=== PATIENT | female | born 1950 | race Caucasian/White ===

== ENCOUNTER 2016-12-01 14:52 | Emergency (ER) | payer MEDICARE, OTHER ==
[~2016-12-01] VITALS: Ht 157.5 cm; Wt 77.0 kg
[~2016-12-01 14:52] MED LIST: HYDR-1530 PO; LORT5TAB PO; ONDA4TAB7 OR; Z.0.NO CURRENT MEDS
[2016-12-01 14:54] VITALS: BP 178/85; PULSE 99; RESP 21; TEMP 98.3; O2SAT 98
--- NOTE | 2016-12-01 15:14 | PD ---
HPI Chief Complaint: Fall Time Seen by Provider: 15:14 Travel History International Travel<30 days: No Contact w/Intl Traveler<30days: No Traveled to known affect area: No History of Present Illness HPI 66-year-old female presents to the emergency Department with complaint of left shoulder pain after missing a step and falling forward while walking up the steps. She denies hitting her head or loss of consciousness. Denies neck pain or back pain. Denies anticoagulants. Denies lightheadedness, dizziness, headache, nausea, vomiting. Denies chest pain, shortness of breath, abdominal pain. Denies paresthesias, loss of sensation to the affected extremity. Reports decreased range of motion Has not taken any medications or tried any treatments to alleviate her symptoms. Has no other medical complaints. No other modifying factors or associated signs and symptoms. PFSH Past Medical History Arthritis: No Asthma: Yes Autoimmune Disease: No Heart Rhythm Problems: No Cardiovascular Problems: No High Cholesterol: No Chest Pain: No Congestive Heart Failure: No COPD: Yes Cerebrovascular Accident: No Diminished Hearing: Yes (LEFT EAR) Diverticulitis: Yes Endocrine: No Gastrointestinal Disorders: Yes GERD: Yes Genitourinary: No Headaches: Yes Hepatitis: No Hiatal Hernia: No Hypertension: No Musculoskeletal: No Neurologic: No Respiratory: Yes (copd) Myocardial Infarction: No Seizures: No Ulcer: No ?: Not Menopausal: Yes Tubal Ligation: Yes (1977) Past Surgical History Abdominal Surgery: Yes (GALL BLADDER REMOVAL, TUBAL LIGATION) AICD: No Cardiac Surgery: No Cholecystectomy: Yes (1978) Ear Surgery: No Endocrine Surgery: No Eye Surgery: No Genitourinary Surgery: No Gynecologic Surgery: Yes (TUBAL LIGATION) Oral Surgery: No Pacemaker: No Thoracic Surgery: No Other Surgery: Yes (PLASTIC CHIN) Social History Alcohol Use: No Tobacco Use: Yes (2.5 PPD X30 YEARS) Substance Use: No Allergies-Medications (Allergen,Severity, Reaction): Coded Allergies: Iodine (Verified Allergy, Severe, HIVES, SHOCK, 01/18/12) RASH Nonsteroidal Anti-Inflammatory Agts (Verified Allergy, Mild, STOMACH UPSET , 01/18/12) Penicillin (Verified Allergy, Mild, 01/18/12) Reported Meds & Prescriptions Reported Meds & Active Scripts Active Ondansetron Odt (Ondansetron HCl) 4 Mg Tab 4 Mg OR Q6HPRN Acetaminophen/Hydrocodone (Acetaminophen/Hydrocodone Bitart) 325 Mg/10 Mg Tab 325 Mg PO Q6HPRN Lortab 5/500 (Acetaminophen/Hydrocodone Bitart) 5 Mg/500 Mg Tab 1 Tab PO Q6HPRN Reported No Current Meds (Miscellaneous Medication) [facility] [place] Review of Systems Except as stated in HPI: all other systems reviewed are Neg Physical Exam Narrative GENERAL: Well-nourished, well-developed female patient, in no acute distress SKIN: Warm and dry. HEAD: Atraumatic. Normocephalic. No facial or scalp abrasions or lacerations noted. EYES: Pupils equal and round at 3 mm with brisk reaction. No scleral icterus. No injection or drainage. No raccoon eyes. ENT: Mucosa pink and moist. No erythema or exudates. No uvular edema. No uvular , palatal, or tonsillar deviation. Airway patent. Nares without nasal blood, purulent drainage. No rhinorrhea. EARS: Bilateral pinnae and external canals appear within normal limits. Bilateral tympanic membranes without erythema, dullness, hemotympanum or perforation. No otorrhea. No melton signs. NECK: Moving freely. Trachea midline. No lymphadenopathy. Active rotation of the neck greater than 45 left and right. No midline point tenderness on palpation of the cervical spine. No obvious deformities. CHEST: No retractions or use of accessory muscles. CARDIOVASCULAR: Regular rate and rhythm. No murmur appreciated. RESPIRATORY: No accessory muscle use. Clear to auscultation. Breath sounds equal bilaterally. GASTROINTESTINAL: Abdomen soft, non-tender, nondistended. Hepatic and splenic margins not palpable. Bowel sounds are active 4 quadrants. 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 Area of edema and mild ecchymosis noted to the left biceps area; areas with tenderness on palpation. Left upper extremity supple and nontender 2 + radial pulses and sensory intact. No obvious deformities. No clubbing. No cyanosis. No edema. BACK: No midline Point tenderness on palpation of the lumbar or thoracic spine. No obvious deformities. Patient sitting up in bed at 90. NEUROLOGICAL: Awake and alert. Oriented 3. No obvious cranial nerve deficits. Motor grossly within normal limits. Normal speech Moves all extremities. 5/5 strength to all extremities. Sensory intact. PSYCHIATRIC: Appropriate mood and affect; insight and judgment normal. Data Data Last Documented VS Vital Signs Date Time Temp Pulse Resp B/P Pulse Ox O2 Delivery O2 Flow Rate FiO2 12/01/16 15:16 16 98 Room Air 12/01/16 14:54 98.3 99 178/85 Orders Shoulder, Complete (>2vws) (12/01/16 15:14) Ice/Cold Pack (12/01/16 15:14) Humerus (Min 2vws) (12/01/16 15:16) Sling Cradle Arm (12/01/16 ) Sling Cradle Arm (12/01/16 ) MDM Medical Decision Making Medical Screen Exam Complete: Yes Emergency Medical Condition: Yes Medical Record Reviewed: Yes Differential Diagnosis Fall, Shoulder sprain, shoulder contusion, shoulder fracture, clavicle fracture , humerus fracture Narrative Course 66-year-old female with left shoulder pain after a mechanical fall today. Denies hitting her head or loss of consciousness. Denies nausea, vomiting. On physical exam the patient is without raccoon eyes, melton signs, rhinorrhea, or hemotympanum. I do not suspect open or depressed skull fracture, and the patient has no signs of basilar skull fracture. [place] CT Head Injury Rule suggests a head CT is not necessary for this patient and clears the patient for head injury without imaging. Denies neck pain. [place] C-Spine Rule suggests the C-Spine can be cleared clinically of fracture, and imaging is not required. There is no midline point tenderness on palpation of the cervical spine. The patient is able to actively rotate the neck 45 left and right. The patient is sitting up in bed at 90. The patient is ambulatory. I offered the patient medication for pain and she declined at this time. Icepack ordered. Left shoulder x-ray ordered. Left humerus x-ray ordered. 1630: Left shoulder and left humerus x-ray with no acute findings. Arm sling provided for support. Patient declined prescription for pain medications for home. Instructed patient to follow up outpatient with orthopedics if symptoms persist greater than 7-10 days. Patient verbalizes understanding and agreement with treatment plan. Patient is medically cleared and stable for discharge. Discussed reasons to return to the emergency department. Instructed patient to follow up with primary care provider. Patient agrees with treatment plan. The patients vital signs are stable and the patient is stable for outpatient follow- up and treatment. Patient discharged home, stable and in no acute distress. Diagnosis Primary Impression: Fall Qualified Code: W19.XXXA - Fall, initial encounter Additional Impressions: Shoulder injury Qualified Code: S49.92XA - Shoulder injury, left, initial encounter Contusion, arm, upper Qualified Code: S40.022A - Contusion of left upper arm, initial encounter Referrals: Primary Care Physician Patient Instructions: Contusion in Adults (ED), Fall Prevention (ED), General Instructions, Shoulder Sprain (ED) Additional Instructions: Tylenol or ibuprofen as needed and as directed to reduce pain and inflammation Rest, ice, and compress extremity to decrease pain and inflammation Arm sling for support; remove arm sling frequently to actively move the shoulder as tolerated Avoid aggravating activity; increase activity as tolerated Follow-up with primary care provider Follow-up with orthopedics as needed Return to the emergency department immediately with worsening symptoms Med/Other Pt SpecificInfo: No Meds Exist/No RX given Disposition: 01 DISCHARGE HOME Condition: Stable [place] Dec 01, 2016 15:14
--- NOTE | 2016-12-01 16:19 | RADRPT ---
EXAM DATE/TIME: 12/01/2016 15:30 [facility] COMPARISON: No previous studies available for comparison. INDICATIONS : Pain from fall. MEDICAL HISTORY : None. SURGICAL HISTORY : None. ENCOUNTER: Initial ACUITY: 1 day PAIN SCORE: 6/10 LOCATION: Left shoulder. FINDINGS: Multiple view examination of the left shoulder demonstrates no evidence of fracture or dislocation. The glenohumeral and acromioclavicular joints are maintained. There is normal range of motion betwee n internal and external rotation. Bony mineralization is normal. There is a small focus of sclerosis at the left humeral head likely related to a bone island. CONCLUSION: No acute disease. Steve Fowler MD on December 01, 2016 at 16:15 Board Certified Radiologist. This report was verified electronically.
--- NOTE | 2016-12-01 16:19 | RADRPT ---
EXAM DATE/TIME: 12/01/2016 15:36 [facility] COMPARISON: No previous studies available for comparison. INDICATIONS : Pain from fall. MEDICAL HISTORY : None. SURGICAL HISTORY : None. ENCOUNTER: Initial ACUITY: 1 day PAIN SCORE: 5/10 LOCATION: Left humerus. FINDINGS: Two view examination of the left humerus demonstrates no evidence of fracture or dislocation. Bony m ineralization is normal. The soft tissue structures are intact. CONCLUSION: No acute disease. Steve Fowler MD on December 01, 2016 at 16:16 Board Certified Radiologist. This report was verified electronically.
== END 2016-12-01 16:47 | disposition home or self-care (01) ==
LOC: NEPD 14:52
DX: S40.022A Contusion of left upper arm, initial encounter (principal); J45.909 Unspecified asthma, uncomplicated; J44.9 Chronic obstructive pulmonary disease, unspecified; K21.9 Gastro-esophageal reflux disease without esophagitis; Z79.899 Other long term (current) drug therapy; Z88.0 Allergy status to penicillin; Z88.6 Allergy status to analgesic agent; W10.9XXA Fall (on) (from) unspecified stairs and steps, initial encounter
CPT/HCPCS: 73030; 73060; 99283

== ENCOUNTER 2017-05-28 10:43 | Observation (INO) | payer MEDICARE, OTHER ==
[2017-05-28] VITALS (7 sets, daily range): BP systolic 130–137; BP diastolic 60–80; PULSE 72–85; RESP 16–20; TEMP 97.8–98.9; O2SAT 97–99
[2017-05-28 12:02] LABS: AUTOMATED NEUTROPHIL # 6.7 TH/MM3 (1.8-7.7); BASOPHIL # 0.1 TH/MM3 (0-0.2); BASOPHIL % 0.6 % (0.0-2.0); EOSINOPHIL # 0.1 TH/MM3 (0-0.4); EOSINOPHIL % 1.3 % (0.0-4.0); HEMATOCRIT 43.5 % (35.0-46.0); HEMO FLAGS DIFF FINAL; LYMPH % 25.2 % (9.0-44.0); LYMPHOCYTE # 2.5 TH/MM3 (1.0-4.8); MEAN CELL VOLUME 91.6 FL (80.0-100.0); MEAN CORPUSCULAR HEMOGLOBIN 30.8 PG (27.0-34.0); MEAN CORPUSCULAR HGB CONC 33.6 % (32.0-36.0); MONO % 6.2 % (0.0-8.0); NEUT % 66.7 % (16.0-70.0); PLATELET COUNT 242 TH/MM3 (150-450); RED BLOOD COUNT 4.75 MIL/MM3 (4.00-5.30); RED CELL DISTRIBUTION WIDTH 15.1 % (11.6-17.2)
[2017-05-28 12:11] LABS: APTT (PATIENT) 29.7 SEC (24.3-30.1); PROTHROMBIN TIME - PATIENT 9.8 SEC (9.8-11.6)
[2017-05-28 12:22] LABS: ANION GAP 11 MEQ/L (5-15); BICARBONATE 24.4 MEQ/L (21.0-32.0); BLOOD UREA NITROGEN 13 MG/DL (7-18); CHLORIDE 106 MEQ/L (98-107); GLOMERULAR FILTRATION RATE 88 ML/MIN (>89); SODIUM (NA) 141 MEQ/L (136-145)
--- NOTE | 2017-05-28 12:29 | RADRPT ---
EXAM DATE/TIME: 05/28/2017 11:53 [facility] COMPARISON: No previous studies available for comparison. INDICATIONS : Chest pain. MEDICAL HISTORY : Chronic obstructive pulmonary disease. SURGICAL HISTORY : None. ENCOUNTER: Initial ACUITY: 1 day PAIN SCORE: 10 LOCATION: Bilateral chest FINDINGS: A single view of the chest demonstrates the lungs to be symmetrically aerated without evidence of mas s, infiltrate or effusion. The cardiomediastinal contours are unremarkable. Osseous structures are intact. CONCLUSION: Normal examination. Andrew Saunders MD on May 28, 2017 at 12:26 Board Certified Radiologist. This report was verified electronically.
[2017-05-28] MEDS ORDERED: NITROGLYCERIN 0.4 MG SL 25 TABS/BTL SL PRN (12:45)
--- NOTE | 2017-05-28 12:55 | PD ---
HPI Chief Complaint: Chest Pain Time Seen by Provider: 11:01 Travel History International Travel<30 days: No Contact w/Intl Traveler<30days: No Traveled to known affect area: No History of Present Illness HPI 66yo F with no significant PMH presents to the ED with c/o midsternal chest pain about 20 min prior to arrival. Said it feels like a tightness, nonradiating. She was sweating. Denies any sob, cough, fever, n/v, abdominal pain, focal weakness or numbness. +Cigarette smoking. Denies any cardiac work up, recent stress test. PFSH Past Medical History Arthritis: No Asthma: Yes Autoimmune Disease: No Heart Rhythm Problems: No Cardiovascular Problems: No High Cholesterol: No Chest Pain: No Congestive Heart Failure: No COPD: Yes Cerebrovascular Accident: No Diminished Hearing: Yes (LEFT EAR) Diverticulitis: Yes Endocrine: No Gastrointestinal Disorders: Yes GERD: Yes Genitourinary: No Headaches: Yes Hepatitis: No Hiatal Hernia: No Hypertension: No Musculoskeletal: No Neurologic: No Reproductive: No Respiratory: Yes (copd) Myocardial Infarction: No Seizures: No Ulcer: No ?: Not Menopausal: Yes Tubal Ligation: Yes (1977) Past Surgical History Abdominal Surgery: Yes (GALL BLADDER REMOVAL, TUBAL LIGATION) AICD: No Cardiac Surgery: No Cholecystectomy: Yes (1978) Ear Surgery: No Endocrine Surgery: No Eye Surgery: No Genitourinary Surgery: No Gynecologic Surgery: Yes (TUBAL LIGATION) Neurologic Surgery: No Oral Surgery: No Pacemaker: No Thoracic Surgery: No Other Surgery: Yes (PLASTIC CHIN) Social History Alcohol Use: No Tobacco Use: Yes (2.5 PPD X30 YEARS) Substance Use: No Allergies-Medications (Allergen,Severity, Reaction): Coded Allergies: iodine (Verified Allergy, Severe, HIVES, SHOCK, 05/28/17) RASH potassium iodide (Verified Allergy, Severe, HIVES, SHOCK, 05/28/17) RASH povidone-iodine (Verified Allergy, Severe, HIVES, SHOCK, 05/28/17) RASH sodium iodide (Verified Allergy, Severe, HIVES, SHOCK, 05/28/17) RASH sodium iodide (Verified Allergy, Severe, HIVES, SHOCK, 05/28/17) RASH diclofenac (Verified Allergy, Mild, STOMACH UPSET, 05/28/17) etodolac (Verified Allergy, Mild, STOMACH UPSET, 05/28/17) flurbiprofen (Verified Allergy, Mild, STOMACH UPSET, 05/28/17) ibuprofen (Verified Allergy, Mild, STOMACH UPSET, 05/28/17) indomethacin (Verified Allergy, Mild, STOMACH UPSET, 05/28/17) ketoprofen (Verified Allergy, Mild, STOMACH UPSET, 05/28/17) ketorolac (Verified Allergy, Mild, STOMACH UPSET, 05/28/17) naproxen (Verified Allergy, Mild, STOMACH UPSET, 05/28/17) oxaprozin (Verified Allergy, Mild, STOMACH UPSET, 05/28/17) penicillin G (Verified Allergy, Mild, 05/28/17) Reported Meds & Prescriptions Reported Meds & Active Scripts Active Ondansetron Odt (Ondansetron HCl) 4 Mg Tab 4 Mg OR Q6HPRN Acetaminophen/Hydrocodone (Acetaminophen/Hydrocodone Bitart) 325 Mg/10 Mg Tab 325 Mg PO Q6HPRN Lortab 5/500 (Acetaminophen/Hydrocodone Bitart) 5 Mg/500 Mg Tab 1 Tab PO Q6HPRN Reported No Current Meds (Miscellaneous Medication) Misc Review of Systems Except as stated in HPI: all other systems reviewed are Neg Physical Exam Narrative GENERAL: 66yo F in mild distress. SKIN: Focused skin assessment warm/dry. HEAD: Atraumatic. Normocephalic. EYES: Pupils equal and round. No scleral icterus. No injection or drainage. CARDIOVASCULAR: Regular rate and rhythm. No murmur appreciated. RESPIRATORY: No accessory muscle use. Clear to auscultation. Breath sounds equal bilaterally. GASTROINTESTINAL: Abdomen soft, non-tender, nondistended. MUSCULOSKELETAL: No obvious deformities. No clubbing. No cyanosis. Trace lower ext edema. NEUROLOGICAL: Awake and alert. No obvious cranial nerve deficits. Motor grossly within normal limits. Normal speech. PSYCHIATRIC: Appropriate mood and affect; insight and judgment normal. Data Data Last Documented VS Vital Signs Date Time Temp Pulse Resp B/P (MAP) Pulse Ox O2 Delivery O2 Flow Rate FiO2 05/28/17 10:57 78 18 130/66 (87) 98 Room Air 05/28/17 10:52 98.9 Orders Orders Basic Metabolic Panel (Bmp) (05/28/17 11:13) Complete Blood Count With Diff (05/28/17 11:13) Prothrombin Time / Inr (Pt) (05/28/17 11:13) Act Partial Throm Time (Ptt) (05/28/17 11:13) Troponin I (05/28/17 11:13) Chest, Single Ap (05/28/17 11:13) Nitroglycerin Sl (Nitrostat Sl) (05/28/17 12:45) Labs Laboratory Tests Test 05/28/17 11:10 White Blood Count 10.0 TH/MM3 Red Blood Count 4.75 MIL/MM3 Hemoglobin 14.6 GM/DL Hematocrit 43.5 % Mean Corpuscular Volume 91.6 FL Mean Corpuscular Hemoglobin 30.8 PG Mean Corpuscular Hemoglobin Concent 33.6 % Red Cell Distribution Width 15.1 % Platelet Count 242 TH/MM3 Mean Platelet Volume 8.9 FL Neutrophils (%) (Auto) 66.7 % Lymphocytes (%) (Auto) 25.2 % Monocytes (%) (Auto) 6.2 % Eosinophils (%) (Auto) 1.3 % Basophils (%) (Auto) 0.6 % Neutrophils # (Auto) 6.7 TH/MM3 Lymphocytes # (Auto) 2.5 TH/MM3 Monocytes # (Auto) 0.6 TH/MM3 Eosinophils # (Auto) 0.1 TH/MM3 Basophils # (Auto) 0.1 TH/MM3 CBC Comment DIFF FINAL Differential Comment Prothrombin Time 9.8 SEC Prothromb Time International Ratio 1.0 RATIO Activated Partial Thromboplast Time 29.7 SEC Blood Urea Nitrogen 13 MG/DL Creatinine 0.67 MG/DL Random Glucose 94 MG/DL Calcium Level 8.8 MG/DL Sodium Level 141 MEQ/L Potassium Level 4.0 MEQ/L Chloride Level 106 MEQ/L Carbon Dioxide Level 24.4 MEQ/L Anion Gap 11 MEQ/L Estimat Glomerular Filtration Rate 88 ML/MIN Troponin I LESS THAN 0.02 NG/ML MDM Medical Decision Making Medical Screen Exam Complete: Yes Emergency Medical Condition: Yes Interpretation(s) EKG: NSR 62bpm. Normal axis. Differential Diagnosis ACS vs. GERD vs. musculoskeletal pain Narrative Course 66yo F with midsternal chest pain. She took aspirin prior to arrival. Pt given sublingual nitro which helped with the chest pain. Labs reviewed, no leukocytosis. Troponin negative. CXR negative. Pt has not had any cardiac work up so will admit to chest pain center for serial EKG and cardiac enzymes. Diagnosis Primary Impression: Chest pain Qualified Codes: R07.9 - Chest pain, unspecified Admitting Information Admitting Physician Requests: Mercedes Colmenares DO May 28, 2017 12:55
[2017-05-28] MEDS ORDERED: OMEP40CA2 PO (13:14)
[2017-05-28] MEDS ORDERED: NAPR250T4 PO (13:14)
[2017-05-28] MEDS ORDERED: RESP: ALBUTEROL 2.5 MG/IPRATROPIUM 0.5 MG NEB (PRN) INH (13:30)
[2017-05-28] MEDS ORDERED: ACETAMINOPHEN/HYDROcodone 325 MG/7.5 MG TAB PO PRN (13:30)
[2017-05-28] MEDS ORDERED: ONDANSETRON HCL 4 MG/2 ML VIAL IV PUSH PRN (13:30)
[2017-05-28] MEDS ORDERED: cloNIDine HCL 0.1 MG TAB PO PRN (13:30)
[2017-05-28] MEDS ORDERED: ALPRAZolam 0.25 MG TAB PO PRN (13:30)
[2017-05-28] MEDS ORDERED: ACETAMINOPHEN 500 MG CPLT PO PRN (13:30)
--- NOTE | 2017-05-28 13:49 | HHI.HP ---
HPI Primary Care Physician Neftali Alvares DO Chief Complaint Chest Pain History of Present Illness This is a 66-year-old female that presents to ED via ambulance with a complaint of chest discomfort. Patient states that about 10:00 this morning while she was at home walking to her porch she developed a lower dental discomfort and then almost immediately developed a substernal chest discomfort. She states it was a sharp pain and very intense initially. There was a 8 out of 10 initially. She states that after having the discomfort for 15 minutes she decided to call 911. She took 2 baby aspirins. EVAC gave her 2 subluminal nitroglycerin sprays which she states helped to about a 5 out of 10 within about 10 minutes of administration. The discomfort is still present but now it as a tightness in the same area and rated as a 1 out of 10. Found nothing to worsen the symptoms. She was not sure breath nauseous or diaphoretic but she did feel a little dizzy. She states she's had similar episodes of this in the past. She thinks maybe once or twice a year. This just lasts a little bit longer. Denies recent illness. Denies fevers or chills. Denies recent travel. She believes she had a stress test in the past. Upon reviewing her records, patient had an adenosine thallium stress test in 2004 that was nonischemic with an EF of 77%. Review of Systems General: Patient denies fevers, chills recent, and recent travel HEENT: Patient denies headache, sore throat, difficulty swallowing. Cardiovascular: Has the chest discomfort as mentioned above. Denies sensation of heart beating rapidly or irregularly. No syncope. Respiratory: Denies shortness of breath or inspirational chest discomfort. Denies coughing wheezing or hemoptysis. GI: Patient denies nausea, vomiting, diarrhea, abdominal pain, bloody stools. Musculoskeletal: Patient denies joint pain or edema. Denies calf pain or edema. Neurovascular: [place] a little dizzy initially. Patient denies numbness, tingling , weakness in extremities. Denies headache. Endocrine: Denies polyuria and polydipsia. Hematologic: Denies easy bruising. Skin: Denies rash or itching. Past Family Social History Allergies: Coded Allergies: iodine (Verified Allergy, Severe, HIVES, SHOCK, 05/28/17) RASH potassium iodide (Verified Allergy, Severe, HIVES, SHOCK, 05/28/17) RASH povidone-iodine (Verified Allergy, Severe, HIVES, SHOCK, 05/28/17) RASH sodium iodide (Verified Allergy, Severe, HIVES, SHOCK, 05/28/17) RASH sodium iodide (Verified Allergy, Severe, HIVES, SHOCK, 05/28/17) RASH diclofenac (Verified Allergy, Mild, STOMACH UPSET, 05/28/17) etodolac (Verified Allergy, Mild, STOMACH UPSET, 05/28/17) flurbiprofen (Verified Allergy, Mild, STOMACH UPSET, 05/28/17) ibuprofen (Verified Allergy, Mild, STOMACH UPSET, 05/28/17) indomethacin (Verified Allergy, Mild, STOMACH UPSET, 05/28/17) ketoprofen (Verified Allergy, Mild, STOMACH UPSET, 05/28/17) ketorolac (Verified Allergy, Mild, STOMACH UPSET, 05/28/17) naproxen (Verified Allergy, Mild, STOMACH UPSET, 05/28/17) oxaprozin (Verified Allergy, Mild, STOMACH UPSET, 05/28/17) penicillin G (Verified Allergy, Mild, 05/28/17) Past Medical History GERD. COPD however she states she has never been prescribed medication for COPD. Denies hypertension, hyperlipidemia, diabetes, and known CAD. Past Surgical History Tubal ligation, cholecystectomy. Reported Medications Reported Meds & Active Scripts Active Reported Naproxen 250 Mg Tab 250 Mg PO BID Omeprazole 40 Mg Cap 40 Mg PO DAILY Active Ordered Medications Current Medications Medications (Trade) Dose Ordered Sig/Juan F Route Start Time Stop Time Status Last Admin (Nitrostat Sl) 0.4 mg Q5M PRN SL 05/28/17 12:45 (Tylenol) 500 mg Q4H PRN PO 05/28/17 13:30 UNV ([place] 7.5-325 Mg) 1 tab Q4H PRN PO 05/28/17 13:30 UNV (Zofran Inj) 4 mg Q6H PRN IV PUSH 05/28/17 13:30 UNV (Aspirin) 325 mg DAILY PO 05/29/17 09:00 UNV (Xanax) 0.25 mg Q8H PRN PO 05/28/17 13:30 UNV (Duoneb Neb) 1 ampule Q4HR NEB PRN INH 05/28/17 13:30 UNV (Catapres) 0.1 mg Q4H PRN PO 05/28/17 13:30 UNV (Protonix) 40 mg DAILY PO 05/28/17 13:30 UNV Family History Patient is not aware of her family history. States she grew up in foster care. Social History On average a smoked 2 pack of cigarettes daily for 50 years. Has on average a couple alcohol beverages a week but states she had 5-6 out of beverages last evening. Denies illicit drugs. Physical Exam Vital Signs Vital Signs Date Time Temp Pulse Resp B/P (MAP) Pulse Ox O2 Delivery O2 Flow Rate FiO2 05/28/17 13:08 72 18 137/80 (99) 97 Room Air 05/28/17 10:57 78 18 130/66 (87) 98 Room Air 05/28/17 10:52 98.9 80 18 130/66 (87) 97 Physical Exam GENERAL: This is a well-nourished, well-developed patient, in no apparent distress. Patient speaks in clear complete sentences. Patient is pleasant. HEENT: Head is atraumatic and normocephalic. Neck is supple without lymphadenopathy and trachea is midline. No JVD or carotid bruits. CARDIOVASCULAR: Regular rate and rhythm without murmurs, gallops, or rubs. RESPIRATORY: Clear to auscultation. Breath sounds equal bilaterally. No wheezes , rales, or rhonchi. Chest wall is tender. No use of accessory muscles. GASTROINTESTINAL: Abdomen is nontender, nondistended. Abdomen soft. No obvious pulsatile mass or bruit. No CVA tenderness. Strong femoral pulses bilaterally. Normal bowel sounds in all quadrants. MUSCULOSKELETAL: Patient is moving upper and lower extremities freely. No calf tenderness or edema, no Homans sign. Strong pulses in upper and lower extremities. NEUROLOGICAL: Patient is alert and oriented. Cranial nerves 2-12 are grossly intact. No focal deficits and speech is clear. SKIN: No rash and turgor is normal. Laboratory Laboratory Tests Test 05/28/17 11:10 White Blood Count 10.0 Red Blood Count 4.75 Hemoglobin 14.6 Hematocrit 43.5 Mean Corpuscular Volume 91.6 Mean Corpuscular Hemoglobin 30.8 Mean Corpuscular Hemoglobin Concent 33.6 Red Cell Distribution Width 15.1 Platelet Count 242 Mean Platelet Volume 8.9 Neutrophils (%) (Auto) 66.7 Lymphocytes (%) (Auto) 25.2 Monocytes (%) (Auto) 6.2 Eosinophils (%) (Auto) 1.3 Basophils (%) (Auto) 0.6 Neutrophils # (Auto) 6.7 Lymphocytes # (Auto) 2.5 Monocytes # (Auto) 0.6 Eosinophils # (Auto) 0.1 Basophils # (Auto) 0.1 CBC Comment DIFF FINAL Differential Comment Prothrombin Time 9.8 Prothromb Time International Ratio 1.0 Activated Partial Thromboplast Time 29.7 Blood Urea Nitrogen 13 Creatinine 0.67 Random Glucose 94 Calcium Level 8.8 Sodium Level 141 Potassium Level 4.0 Chloride Level 106 Carbon Dioxide Level 24.4 Anion Gap 11 Estimat Glomerular Filtration Rate 88 Troponin I LESS THAN 0.02 Result Diagram: 05/28/17 1110 05/28/17 1110 Imaging Last 24 hours Impressions Chest X-Ray 05/28/17 1113 Signed Impressions: Service Date/Time: Sunday, May 28, 2017 11:53 - CONCLUSION: Normal examination. Andrew Saunders MD Course Initial EKG has sinus rhythm without significant ST segment depressions or elevations. Caprini VTE Risk Assessment Caprini VTE Risk Assessment: Mod/High Risk (score >= 2) Caprini Risk Assessment Model Point Value = 1 Point Value = 2 Point Value = 3 Point Value = 5 Age 41-60 Minor surgery BMI > 25 kg/m2 Swollen legs Varicose veins or History of unexplained or recurrent spontaneous Oral contraceptives or hormone replacement Sepsis (< 1 month) Serious lung disease, including pneumonia (< 1 month) Abnormal pulmonary function Acute myocardial infarction Congestive heart failure (< 1 month) History of inflammatory bowel disease Medical patient at bed rest Age 61-74 Arthroscopic surgery Major open surgery (> 45 min) Laparoscopic surgery (> 45 min) Malignancy Confined to bed (> 72 hours) Immobilizing plaster cast Central venous access Age >= 75 History of VTE Family history of VTE Factor V Leiden Prothrombin 11954C Lupus anticoagulant Anticardiolipin antibodies Elevated serum homocysteine Heparin-induced thrombocytopenia Other congenital or acquired thrombophilia Stroke (< 1 month) Elective arthroplasty Hip, pelvis, or leg fracture Acute spinal cord injury (< 1 month) Prophylaxis Regimen Total Risk Factor Score Risk Level Prophylaxis Regimen 0-1 Low Early ambulation 2 Moderate Order ONE of the following: *Sequential Compression Device (SCD) *Heparin 5000 units SQ BID 3-4 Higher Order ONE of the following medications: *Heparin 5000 units SQ TID *Enoxaparin/Lovenox 40 mg SQ daily (WT < 150 kg, CrCl > 30 mL/min) *Enoxaparin/Lovenox 30 mg SQ daily (WT < 150 kg, CrCl > 10-29 mL/min) *Enoxaparin/Lovenox 30 mg SQ BID (WT < 150 kg, CrCl > 30 mL/min) AND/OR *Sequential Compression Device (SCD) 5 or more Highest Order ONE of the following medications: *Heparin 5000 units SQ TID (Preferred with Epidurals) *Enoxaparin/Lovenox 40 mg SQ daily (WT < 150 kg, CrCl > 30 mL/min) *Enoxaparin/Lovenox 30 mg SQ daily (WT < 150 kg, CrCl > 10-29 mL/min) *Enoxaparin/Lovenox 30 mg SQ BID (WT < 150 kg, CrCl > 30 mL/min) AND *Sequential Compression Device (SCD) Assessment and Plan Assessment and Plan * Chest pain: Patient will continue to have serial cardiac enzymes and EKGs for ruling out purposes. She will be evaluated by Dr. Crocker cardiology in the chest pain center. She will stress testing in the morning if she rules out. Patient believes she could walk on a treadmill. Likely patient have a Santhosh protocol ETT if she rules out and will be discharged home with instructions to follow-up with PCP if the stress test was nonischemic. She should follow-up with PCP and return to ED for interval issues. * GERD: Patient to continue Prilosec. Patient will be on Protonix while in the chest pain center. * Tobacco abuse: Patient has been counseled on the importance of tobacco cessation. Patient is stable at this time. She is agreeable to this plan. Marcos Aquino May 28, 2017 13:49
--- NOTE | 2017-05-28 15:09 | EKG ---
Date Performed: 05/28/2017 Time Performed: 10:55:07 PTAGE: 66 years EKG: Sinus rhythm WITH SINUS ARRHYTHMIA NONSPECIFIC T-WAVE ABNORMALITY BORDERLINE ECG No significant change from prior electrocardiogram. PREVIOUS TRACING : 05/28/2017 10.37 DOCTOR: Khanh Chavarria Interpretating Date/Time 05/28/2017 15:08:55
[2017-05-28 15:16] LABS: CREATINE KINASE 54 U/L (26-192)
[2017-05-28 19:33] LABS: CREATINE KINASE 37 U/L (26-192)
[2017-05-28] MEDS: PANTOPRAZOLE SOD 40 MG DELAYED RELEASE TAB PO SCH (22:13)
[2017-05-29 00:04] VITALS: PULSE 57
[2017-05-29 00:05] VITALS: BP 134/70; PULSE 61; RESP 17; TEMP 98; O2SAT 100
[2017-05-29 03:49] VITALS: BP 139/60; PULSE 59; RESP 17; TEMP 97.8; O2SAT 100
[2017-05-29 03:58] VITALS: PULSE 61
[2017-05-29] MEDS ORDERED: SODIUM CHLORIDE 0.9% FLUSH 10 ML FLUSH IV FLUSH PRN (07:45)
[2017-05-29 07:58] VITALS: BP 138/65; PULSE 57; RESP 16; TEMP 97.6; O2SAT 99
[2017-05-29] MEDS ORDERED: ASPIRIN 325 MG TAB PO SCH (09:00)
[2017-05-29] MEDS ORDERED: SODIUM CHLORIDE 0.9% FLUSH 10 ML FLUSH IV FLUSH SCH (09:00)
--- NOTE | 2017-05-29 09:48 | EKG ---
Date Performed: 05/28/2017 Time Performed: 14:03:02 PTAGE: 66 years EKG: Sinus rhythm WITH SINUS ARRHYTHMIA NONSPECIFIC T-WAVE ABNORMALITY BORDERLINE ECG PREVIOUS TRACING : 05/28/2017 10.55 Since previous tracing, no significant change noted DOCTOR: Armando Noland Interpretating Date/Time 05/29/2017 09:48:10
--- NOTE | 2017-05-29 09:48 | EKG ---
Date Performed: 05/28/2017 Time Performed: 18:10:30 PTAGE: 66 years EKG: Sinus rhythm WITH SINUS ARRHYTHMIA NONSPECIFIC T-WAVE ABNORMALITY BORDERLINE ECG PREVIOUS TRACING : 05/28/2017 14.03 Since previous tracing, no significant change noted DOCTOR: Armando Noland Interpretating Date/Time 05/29/2017 09:46:31
[2017-05-29] MEDS: PANTOPRAZOLE SOD 40 MG DELAYED RELEASE TAB PO SCH (10:11)
--- NOTE | 2017-05-29 11:52 | PD.CARD.PN ---
Objective Medications Current Medications Medications (Trade) Dose Ordered Sig/Juan F Route Start Time Stop Time Status Last Admin (Nitrostat Sl) 0.4 mg Q5M PRN SL 05/28/17 12:45 (Tylenol) 500 mg Q4H PRN PO 05/28/17 13:30 ([place] 7.5-325 Mg) 1 tab Q4H PRN PO 05/28/17 13:30 (Zofran Inj) 4 mg Q6H PRN IV PUSH 05/28/17 13:30 (Aspirin) 325 mg DAILY PO 05/29/17 09:00 05/29/17 10:11 (Xanax) 0.25 mg Q8H PRN PO 05/28/17 13:30 (Duoneb Neb) 1 ampule Q4HR NEB PRN INH 05/28/17 13:30 (Catapres) 0.1 mg Q4H PRN PO 05/28/17 13:30 (Protonix) 40 mg DAILY PO 05/28/17 13:30 05/29/17 10:11 (NS Flush) 2 ml UNSCH PRN IV FLUSH 05/29/17 07:45 (NS Flush) 2 ml BID IV FLUSH 05/29/17 09:00 05/29/17 10:12 Vital Signs / I&O Vital Signs Date Time Temp Pulse Resp B/P (MAP) Pulse Ox O2 Delivery O2 Flow Rate FiO2 05/29/17 07:58 97.6 57 16 138/65 (89) 99 05/29/17 03:58 61 05/29/17 03:49 97.8 59 17 139/60 (86) 100 05/29/17 00:05 98.0 61 17 134/70 (91) 100 05/29/17 00:04 57 05/28/17 20:33 84 05/28/17 19:52 98.1 74 16 134/60 (84) 97 05/28/17 14:35 97.8 85 20 132/69 (90) 99 05/28/17 14:13 77 18 132/75 (94) 98 05/28/17 13:08 72 18 137/80 (99) 97 Room Air Laboratory Laboratory Tests Test 05/28/17 14:10 05/28/17 18:20 Total Creatine Kinase 54 U/L 37 U/L Troponin I LESS THAN 0.02 NG/ML LESS THAN 0.02 NG/ML Assessment and Plan Assessment and Plan Attempted exercise stress test. Unable to walk safely on treadmill. Proceed with chemical stress testing. Patient agreeable to plan of care. Liv Ramesh May 29, 2017 11:52
[2017-05-29 12:35] VITALS: BP 139/64; PULSE 55; RESP 18; TEMP 97.9; O2SAT 100
[2017-05-29] MEDS ORDERED: REGADENOSON INJ 0.4 MG/5 ML SYR ONE (14:26)
--- NOTE | 2017-05-29 16:20 | RADRPT ---
EXAM DATE/TIME: 05/29/2017 14:15 [place] COMPARISON: No previous studies available for comparison. INDICATIONS : Chest pain. Angina. DOSE: 27.4 mCi Tc99m Myoview at stress. 8.2 mCi Tc99m Myoview at rest. 0.4 mg Lexiscan STRESS SYMPTOMS: Dyspnea and nausea. EJECTION FRACTION: > 70% MEDICAL HISTORY : Chronic obstructive pulmonary disease. Smoker. SURGICAL HISTORY : Tubal ligation. Cholecystectomy. ENCOUNTER: Initial ACUITY: 1 day PAIN SCALE: 0/10 LOCATION: Left chest TECHNIQUE: The patient underwent pharmacologic stress with infusion of prescribed dose. Continuous ECG tracing was monitored during stress. Gated SPECT imaging was performed after stress and conventional SPECT i maging was performed at rest. The examination was performed on a SPECT/CT scanner, both attenuation and non-corrected datasets were reviewed. FINDINGS: DISTRIBUTION: The maximum perfused segment at stress is in the anterior lateral wall PERFUSION STUDY: The pattern of perfusion at stress is within normal limits. GATED STUDY: There is intact wall motion and thickening without hypokinetic or dyskinetic segments. CONCLUSION: Negative for stress-induced ischemia. Ejection fraction of 70%.. RISK CATEGORY: Low (<1% Annual Mortality Rate) Bola Mckeon MD FACR on May 29, 2017 at 16:17 Board Certified Radiologist. This report was verified electronically.
--- NOTE | 2017-05-29 16:32 | HHI.DCPOC ---
Discharge Care Plan Diagnosis: (1) Atypical chest pain Goals to Promote Your Health * To prevent worsening of your condition and complications * To maintain your health at the optimal level Directions to Meet Your Goals Take your medications as prescribed Follow your dietary instruction Follow activity as directed Keep your appointments as scheduled Take your immunizations and boosters as scheduled If your symptoms worsen call your PCP, if no PCP go to Urgent Care Center or Emergency Room Smoking is Dangerous to Your Health. Avoid second hand smoke Call the 24-hour hour crisis hotline for domestic abuse at Liv Ramesh May 29, 2017 16:32
--- NOTE | 2017-05-30 10:53 | TR ---
Date Performed: 05/29/2017 Time Performed: 14:41:36 DOCTOR: Harish Dove DRUG LIST: CLINICAL HISTORY: REASON FOR TEST: REASON FOR ENDING: OBSERVATION: CONCLUSION: Lexiscan stress test was performed under standard four minute protocol. [place] e was injected one minute prior to ending the test. No electrocardiographic abormalities were present to suggest ischemia. Nuclear imaging and interpretation are pending. COMMENTS:
--- NOTE | 2017-05-30 13:06 | TR ---
Date Performed: 05/29/2017 Time Performed: 11:42:17 DOCTOR: Harish Dove DRUG LIST: CLINICAL HISTORY: REASON FOR TEST: REASON FOR ENDING: OBSERVATION: CONCLUSION: Attempted soumya protocol. unable to walk safely on treadmill, exam stopped. COMMENTS: submaximal stress test, suggest nancy nuclear test.
== END 2017-05-29 18:05 | disposition home or self-care (01) ==
LOC: NEPC 10:43 → NEDA 12:57 → NEPFCDU 14:25
PROVIDERS: ADMIT Internal Medicine Interventional Cardiology; ATTEND Internal Medicine Interventional Cardiology
DX: R07.2 Precordial pain (principal); R42 Dizziness and giddiness; R06.00 Dyspnea, unspecified; R11.0 Nausea; I49.9 Cardiac arrhythmia, unspecified; I20.9 Angina pectoris, unspecified; J44.9 Chronic obstructive pulmonary disease, unspecified; K21.9 Gastro-esophageal reflux disease without esophagitis; H91.92 Unspecified hearing loss, left ear; F17.210 Nicotine dependence, cigarettes, uncomplicated
CPT/HCPCS: 71010; 78452; 80048; 82550; 84484; 85025; 85610; 85730; 93005; 93017; 99285; A9502; G0378; J2785